=== PATIENT | female | born 1940 | race Caucasian/White ===

== ENCOUNTER 2016-06-24 09:00 | Day surgery (SDC) | payer OTHER ==
[2016-06-19 14:56] LABS: BASOPHILS 0.5 %; BASOPHILS ABSOLUTE 0.03 10/3/uL (0.0-0.16); EOSINOPHILS 3.3 %; HEMATOCRIT 37.9 % (36.0-48.0); HEMOGLOBIN 12.4 g/dL (12.0-16.0); IMMATURE GRANULOCYTES 0.2 %; IMMATURE GRANULOCYTES ABSOLUTE 0.01 10/3/uL (0.0-0.11); LYMPHOCYTES 18.7 %; LYMPHOCYTES ABSOLUTE 1.14 10/3/uL (0.67-4.30); MEAN CORPUS HGB CONC 32.7 g/dL (32.0-36.0); MEAN CORPUSCULAR VOLUME 91.5 fL (80-100); MEAN PLATELET VOLUME 11.5 fL (9.2-13.0); MONOCYTES 8.7 %; MONOCYTES ABSOLUTE 0.53 10/3/uL (0.21-1.20); NEUTROPHILS 68.6 %; PLATELET COUNT 255 10/3/uL (150-400); RBC DISTRIBUTION WIDTH 13.4 % (12.0-16.0); RED CELL COUNT 4.14 10/6/uL (4.0-5.6)
[2016-06-19 14:57] LABS: MANUAL DIFF NO %; WHITE BLOOD CELLS 6.1 10/3/uL (4.5-10.5)
[2016-06-19 15:09] LABS: A/G RATIO 1.2 (0.7-1.9); ALBUMIN 3.6 G/DL (3.5-5.0); ALKALINE PHOSPHATASE 81 U/L (45-117); BUN (BLOOD UREA NITROGEN) 16 MG/DL (6-23); CALCIUM, SERUM 8.4 MG/DL (8.5-10.4); CHLORIDE, SERUM 106 MMOL/L (96-112); CO2 (CARBON DIOXIDE) 29 MMOL/L (24-34); CREATININE 0.95 MG/DL (0.55-1.02); GFR AFRICAN AMERICAN 67 ML/MIN (>=60); GFR NON AFRICAN AMERICAN 58 ML/MIN (>=60); POTASSIUM, SERUM 3.6 MMOL/L (3.5-5.3); SGOT(AST) 14 U/L (5-40); SGPT(ALT) 16 U/L (5-65); SODIUM, SERUM 143 MMOL/L (135-148); TOTAL BILIRUBIN 0.4 MG/DL (0-1.2); TOTAL PROTEIN 6.6 G/DL (6.0-8.5)
[2016-06-19 15:11] LABS: GLUCOSE, SERUM 115 MG/DL (60-99)
--- NOTE | ~2016-06-24 | OP ---
Record Of Operation [facility] [address] [place]. 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 PROCEDURE: Right axillary sentinel lymph node biopsy followed by a guidewire directed right breast lumpectomy. SURGEON: Maribeth Saha M.D. ANESTHESIA: General endotracheal. ESTIMATED BLOOD LOSS: Nil. FLUIDS: Crystalloid. SPECIMEN: Two right axillary sentinel nodes as well as the right breast mass. DRAINS: None. COMPLICATIONS: None. CONDITION: Good. INDICATIONS: Ms Claudio is a pleasant 76-year-old, who on screening mammography, was found to have a lateral right breast abnormality and then on biopsy revealed an ER/WA positive, HER2- , intermediate growth index invasive ductal carcinoma. The remainder of her breast well visualized without areas of concern. No evidence of a regionally metastatic disease on physical exam or mammogram ultrasound. There is no significant family history of breast cancer or ovarian cancer. After a thorough review of risks, benefits, options, side effects, she would like to pursue breast conservation. I have recommended we are proceeding with a wire-directed right breast lumpectomy and a sentinel lymph node biopsy. PROCEDURE IN DETAIL: After having been identified and undergone lymphoscintigraphy and guidewire placement, noting axillary jing drainage, she was brought the OR and positioned supine. Time-out performed. General laryngeal mask anesthesia induced, time-out performed. Right breast, chest, axilla prepped and draped sterilely. We surveyed the right axilla with the Neoprobe and identified a focal point of activity in this with 684 count per 10 seconds and was marked. She received Ancef preoperatively. We made a transverse incision in the axilla at the marked site and dissected through the subcu and entered the axillary fat properly, surveyed with the Neoprobe and verified a very focal point of activity of 1448 count per 10 seconds. This corresponded to a small lymph node which was grasped with an Allis clamp, excised with electrocautery ex vivo counts 1098 per 10 seconds. This was labeled and sent as sentinel node #1. We resurveyed the axilla through the incision with Record Of Operation [facility] [address] [place]. [address] NAME: STEVEN CLAUDIO : 40 STATUS : [facility] PAT#: [id number] AGE: 76 ADM/REG DATE : 06/24/16 MR#: [id number] REPORT SERV DATE: 06/24/16 DICTATED BY: MARIBETH SAHA DATE: 06/24/16 REPORT STATUS : Draft TRANSCRIBED BY: MODL DATE: 06/24/16 the Neoprobe and identified again a very focal point of activity 1080 count per 10 seconds. Again, this corresponded to a rather small lymph node. This was grasped with an Allis clamp, excised with electrocautery ex vivo counts were 1248 per 10 seconds. This was labeled and sent to formalin as sentinel node #2. Each specimen actually appeared to contain more than one very small unremarkable lymph nodes. After the second excision, we surveyed and had great deal of difficulty identifying any residual activity. The area that appeared to have the most counts was really minimal and on a 10-second count there were 69 counts, this was labeled as post base. We inspected and palpated. There were no other suspicious or abnormal lymph nodes evident. We then broadly infiltrated with 0.25% Marcaine, closed the subcu with running layers with 3-0 Vicryl, closed the dermis with 4-0 Monocryl. Now, we turned our attention to the right breast in evaluating Ms Claudio's breast as well as the mammograms after guidewire placement. The guidewire entered the inferolateral right breast and coursed superior and medial towards the nipple-areolar complex. The abnormality appeared to be in the deeper inferolateral right breast. I made a radial longitudinal incision between the guidewire exit point and the nipple-areolar complex. We dissected into the subcu medial lateral, inferior to superior. In the course of doing this, I was able to palpate the mass. The guidewire actually almost completely came out during the course of the dissection with minimal manipulation. We, in order to be more thorough with our inferomedial margin, backed out and re-dissected more superficial peripheral in the inferomedial aspect suturing the initial plane of dissection closed with a 3-0 Vicryl. We excised the mass in its entirety taking it off the pectoral muscle. Orienting sutures were placed. The lesion was sent for specimen mammography. There were additional small bleeding points that were controlled with electrocautery. We broadly infiltrated the lumpectomy wound with the 0.25% Marcaine solution, closed the subcu with running layers of 3-0 Vicryl, closed the dermis with 4-0 Monocryl, followed by benzoin and Steri-Strips to both incisions. Specimen mammogram returned and we had the lesion nicely centered within the lumpectomy specimen. At this point, sterile occlusive dressings were applied. Ms Claudio was recovered from anesthetic, extubated, transported to recovery room in good condition having tolerated the procedure well. RACHEAL/ROBBIE Maribeth Saha M.D. / [id number] CC: Coy Renner M.D.
[~2016-06-24 09:00] MED LIST: ASAB PO; BYSTOLIC5 MG PO; COREG12 PO; COZAAR100 MG PO; MAX25 PO; NORV5 PO; PRAVACHOL40 MG PO; ZOCOR20 PO
== END 2016-06-24 17:22 | disposition home or self-care (01) ==
LOC: SDC 09:00
PROVIDERS: Surgery
PROC: 07B50ZZ Excision of Right Axillary Lymphatic, Open Approach (ICD-10-PCS; 2016-06-24)
PROC: 0HBT0ZZ Excision of Right Breast, Open Approach (ICD-10-PCS; principal; 2016-06-24 12:45)
DX: C50.911 Malignant neoplasm of unspecified site of right female breast (principal); C77.3 Secondary and unspecified malignant neoplasm of axilla and upper limb lymph nodes; Z17.0 Estrogen receptor positive status [ER+]; I10 Essential (primary) hypertension; Z79.82 Long term (current) use of aspirin; Z79.899 Other long term (current) drug therapy
CPT/HCPCS: 71020; 76098; 78195; 80053; 85025; 88307; 88341; 88342; 88360; 93005; A9541; J0690; J1885; J2405; J3010; Q9968